=== PATIENT | female | born 1995 | race Caucasian/White ===

== ENCOUNTER 2016-03-07 03:15 | Emergency (ER) | payer OTHER ==
[~2016-03-07] VITALS: Ht 157.5 cm; Wt 63.5 kg
[2016-03-07 03:39] VITALS: BP 124/81
--- NOTE | 2016-03-07 03:47 | ED GI/GU/ABDOMINAL COMPLAINT ---
History of Present Illness General Chief Complaint: Nausea, Vomiting, Diarrhea Stated Complaint: +N/V " CAN'T KEEP ANYTHING DOWN" X'S 4 DAYS TODAY Source: patient Exam Limitations: no limitations Vital Signs & Intake/Output Vital Signs & Intake/Output Vital Signs Date Time Temp Pulse Resp B/P Pulse O2 O2 Flow FiO2 Ox Delivery Rate 03/07 0400 99 Room Air Room Air 03/07 0339 98.0 64 16 124/81 98 Room Air Allergies Coded Allergies: No Known Allergies (03/07/16) Triage Note: 20YO FEMALE TO TRIAGE W/CO N/V AND BODYACHES X 4 DAYS. STATES 2 D AGO SHE WAS SEEN AT [facility], TOLD TO FOLLOW W/GI. SHE STATES THE GI THEY RECOMMENDED DOES NOT TAKE HER INSURANCE. Triage Nurses Notes Reviewed? yes ? N Is pt currently ? No HPI: Patient presents with epigastric pain for the past 4 days. Patient was seen at [facility] emergency room on Friday for similar symptoms. Patient was sent home on Zofran, Pepcid and tramadol. Patient states the medicines aren't helping. The pain is constant. The pain is cramping and burning in nature. There are no aggravating or mitigating factors. There is no radiation. Patient states that she has had this pain on and off since the age of 11. Patient has been seen and worked up multiple times. Patient states that she had an endoscopy in May which just showed gastritis. Patient denies fevers or chills. Positive nausea but no vomiting. No diarrhea. No dysuria. Currently the pain is 8 out of 10. Past History Travel History Traveled to [place] past 21 day No Medical History Any Pertinent Medical History? see below for history Neurological: migraine Respiratory: asthma Surgical History Surgical History: non-contributory Psychosocial History What is your primary language British Tobacco Use: Quit >30 days ago ETOH Use: occasional use Illicit Drug Use: denies illicit drug use Family History Hx Contributory? No Review of Systems Review of Systems Constitutional: Reports: no symptoms. EENTM: Reports: no symptoms. Respiratory: Reports: no symptoms. Cardiovascular: Reports: no symptoms. GI: Reports: see HPI, abdominal pain. Genitourinary: Reports: no symptoms. Musculoskeletal: Reports: no symptoms. Skin: Reports: no symptoms. Neurological/Psychological: Reports: no symptoms. Hematologic/Endocrine: Reports: no symptoms. Immunologic/Allergic: Reports: no symptoms. All Other Systems: Reviewed and Negative Physical Exam Physical Exam General Appearance: well developed/nourished, alert, awake, mild distress Head: atraumatic Eyes: Bilateral: PERRL, EOMI. Ears, Nose, Throat, Mouth: hearing grossly normal, DRY MUCOUS MEMBRANES Neck: normal inspection, supple, full range of motion Respiratory: normal breath sounds, chest non-tender, no respiratory distress, lungs clear Cardiovascular: regular rate/rhythm, normal peripheral pulses Gastrointestinal: normal bowel sounds, soft, non-tender, no organomegaly Back: normal inspection, normal range of motion Extremities: normal range of motion Neurologic/Psych: no motor/sensory deficits, awake, alert, oriented x 3, normal gait, normal mood/affect Skin: intact, normal color, warm/dry Core Measures ACS in differential dx? No Severe Sepsis Present: No Septic Shock Present: No Progress Differential Diagnosis: biliary colic, cholecystitis, gastritis, hepatitis, ischemic bowel, inflamm bowel dis, pancreatitis, peptic ulcer, PUD/GERD Plan of Care: Orders Procedure Date/time Status LIPASE 03/07 345 Complete HUMAN BETA HCG SCREEN 03/07 345 Complete COMPREHENSIVE METABOLIC PANEL 03/07 345 Complete CBC WITHOUT DIFFERENTIAL 03/07 345 Complete AMYLASE 03/07 345 Complete Laboratory Tests 03/07/16 0408: Anion Gap 15, Estimated GFR > 60, BUN/Creatinine Ratio 15.7, Glucose 81, Calcium 9.0, Total Bilirubin 0.5, AST 22, ALT 32, Alkaline Phosphatase 71, Total Protein 6.7, Albumin 4.0, Globulin 2.7, Albumin/Globulin Ratio 1.5, Amylase 65, Lipase 85, Total Beta HCG NEGATIVE, CBC w Diff NO MAN DIFF REQ, RBC 4.15 L, MCV 88.3, MCH 29.6, RDW 12.8, MPV 8.5, Gran % 81.0 H, Lymphocytes % 13.0 L, Monocytes % 5.0, Eosinophils % 0, Basophils % 1.0, Absolute Granulocytes 10.1 H, Absolute Lymphocytes 1.6, Absolute Monocytes 0.6, Absolute Eosinophils 0, Absolute Basophils 0.1, PUBS MCHC 33.5 Diagnostic Imaging: Viewed by Me: CT Scan. Discussed w/RAD: CT Scan. Radiology Impression: PATIENT: ELSA HUSSEIN PRESENT AGE: 20 PATIENT ACCOUNT NO: [id number] : 94 LOCATION: [facility] ORDERING PHYSICIAN: LIBERTY TELLEZ MD SERVICE DATE: 03/07/16 EXAM TYPE: CAT - CT ABD & PELVIS W/O IV CONTRAS EXAMINATION: CT ABDOMEN AND PELVIS WITHOUT CONTRAST CLINICAL INFORMATION: Diffuse abdominal pain COMPARISON: None. TECHNIQUE: Multidetector volumetric imaging was performed from the superior aspect of the liver through the pubic symphysis. Sagittal and coronal reformatted images were obtained on the technologist's workstation. DLP: 273 mGy -cm. FINDINGS: LUNG BASES: The visualized lung bases are unremarkable. LIVER, GALLBLADDER, AND BILIARY TREE: The liver is normal in size, shape, and attenuation. No focal hepatic lesion or biliary ductal dilatation is present. The gallbladder is unremarkable with no evidence of radiopaque gallstones, gallbladder wall thickening, or obvious pericholecystic inflammatory changes. PANCREAS: Unremarkable. SPLEEN: Unremarkable. ADRENAL GLANDS: Unremarkable. KIDNEYS AND URETERS: The kidneys are normal in size, shape, and attenuation. No hydronephrosis or hydroureter seen. No perinephric stranding. There is a 0.2 cm left midpole renal calculus, 7.5 cm from the posterior axillary line. BLADDER: Unremarkable. GASTROINTESTINAL TRACT: Evaluation of the bowel is somewhat limited due to lack of intra-abdominal fat and lack of contrast. The stomach and small bowel appear unremarkable. No dilated loops of bowel or evidence of obstruction. The appendix is normal in caliber without adjacent inflammatory change. There is a mixed of gas and high attenuation material within the appendix. There is no colonic wall thickening or inflammatory change. There is a small volume of free fluid in the pelvis. No free air. ABDOMINAL WALL: No significant hernia is appreciated. LYMPH NODES: Normal. VASCULAR: Unremarkable. PELVIC VISCERA: The uterus and adnexa are unremarkable. OSSEOUS STRUCTURES: No acute or suspicious osseous abnormality. IMPRESSION: No acute findings of the abdomen or pelvis. Normal appendix. No inflammatory changes of the bowel. Small volume of free fluid noted in the pelvis may be physiologic. Tiny nonobstructing left midpole renal calculus. DICTATED BY: DENIS GARCIA,IHSAN DATE/TIME DICTATED:03/07/16515 DIE SINKING MACHINE OPERATOR:MELINDA DATE/TIME TRANSCRIBED:515 CONFIDENTIAL, DO NOT COPY WITHOUT APPROPRIATE AUTHORIZATION. < Electronically signed in Other Vendor System> SIGNED BY: DENIS GARCIA, IHSAN 03/07/16 0522 Initial ED EKG: none Departure Departure Disposition: HOME OR SELF CARE Condition: Stable Clinical Impression Primary Impression: Unspecified abdominal pain Referrals: LAW GARCIA,JUSTIN GREER (PCP/Family) Additional Instructions: RETURN IF SYMPTOMS WORSEN OR FOR ANY CONCERNS Departure Forms: Customer Survey General Discharge Information Prescriptions: Current Visit Scripts Pantoprazole Sodium (Protonix) 1 TAB PO BID #28 TAB
[2016-03-07 04:19] LABS: ABSOLUTE BASOPHIL COUNT 0.1 /CUMM (0.0-0.2); ABSOLUTE EOSINOPHIL COUNT 0 /CUMM (0.0-0.7); ABSOLUTE GRANULOCYTE CT 10.1 /CUMM (1.4-6.5); ABSOLUTE LYMPH COUNT 1.6 /CUMM (1.2-3.4); ABSOLUTE MONOCYTE COUNT 0.6 /CUMM (0.10-0.60); EOSINOPHIL % 0 % (0-5); HEMATOCRIT 36.7 % (37-47); MEAN CORPUSCULAR HGB 29.6 PG (27.0-31.0); MEAN CORPUSCULAR HGB CONC 33.5 G/DL (33.0-37.0); MEAN CORPUSCULAR VOLUME 88.3 FL (81.0-99.0); MEAN PLATELET VOLUME 8.5 FL (7.4-10.4); PLATELET COUNT 278 /CUMM (130-400); RBC DISTRIBUTION WIDTH 12.8 % (11.5-14.5); RED BLOOD CELL CT 4.15 /CUMM (4.20-5.40); WHITE BLOOD CELL COUNT 12.5 /CUMM (4.8-10.8)
--- NOTE | 2016-03-07 05:22 | CT SCAN REPORT ---
EXAMINATION: CT ABDOMEN AND PELVIS WITHOUT CONTRAST CLINICAL INFORMATION: Diffuse abdominal pain COMPARISON: None. TECHNIQUE: Multidetector volumetric imaging was performed from the superior aspect of the liver through the pubic symphysis. Sagittal and coronal reformatted images were obtained on the technologist's workstation. DLP: 273 mGy-cm. FINDINGS: LUNG BASES: The visualized lung bases are unremarkable. LIVER, GALLBLADDER, AND BILIARY TREE: The liver is normal in size, shape, and attenuation. No focal hepatic lesion or biliary ductal dilatation is present. The gallbladder is unremarkable with no evidence of radiopaque gallstones, gallbladder wall thickening, or obvious pericholecystic inflammatory changes. PANCREAS: Unremarkable. SPLEEN: Unremarkable. ADRENAL GLANDS: Unremarkable. KIDNEYS AND URETERS: The kidneys are normal in size, shape, and attenuation. No hydronephrosis or hydroureter seen. No perinephric stranding. There is a 0.2 cm left midpole renal calculus, 7.5 cm from the posterior axillary line. BLADDER: Unremarkable. GASTROINTESTINAL TRACT: Evaluation of the bowel is somewhat limited due to lack of intra-abdominal fat and lack of contrast. The stomach and small bowel appear unremarkable. No dilated loops of bowel or evidence of obstruction. The appendix is normal in caliber without adjacent inflammatory change. There is a mixed of gas and high attenuation material within the appendix. There is no colonic wall thickening or inflammatory change. There is a small volume of free fluid in the pelvis. No free air. ABDOMINAL WALL: No significant hernia is appreciated. LYMPH NODES: Normal. VASCULAR: Unremarkable. PELVIC VISCERA: The uterus and adnexa are unremarkable. OSSEOUS STRUCTURES: No acute or suspicious osseous abnormality. IMPRESSION: No acute findings of the abdomen or pelvis. Normal appendix. No inflammatory changes of the bowel. Small volume of free fluid noted in the pelvis may be physiologic. Tiny nonobstructing left midpole renal calculus.
[2016-03-07] MEDS ORDERED: PROTONIX40 M3 PO (05:36)
== END 2016-03-07 06:25 ==
LOC: ERH 03:15
PROVIDERS: Emergency Medicine
DX: R10.13 Epigastric pain (principal)
CPT/HCPCS: 74176; 96361; 96374; 96375; J2405